=== PATIENT | male | born 1980 | race Caucasian/White ===

== ENCOUNTER 2023-12-07 17:27 | Emergency (ER) | payer OTHER ==
[~2023-12-07] VITALS: Ht 180.3 cm; Wt 95.5 kg
[2023-12-07] MEDS ORDERED: predniSONE 50 MG,predniSONE 10 MG PO ONE (18:15)
[2023-12-07] MEDS ORDERED: Albuterol/Ipratropium 3 MG-0.5 MG/3 ML Neb Soln IH ONE (18:15)
[2023-12-07] MEDS ORDERED: PREDNISONE20 MG PO (19:01)
[2023-12-07 19:06] VITALS: BP 159/96; PULSE 58; TEMP 97.1
== END 2023-12-07 19:06 | disposition home or self-care (01) ==
LOC: COL.ER 17:27
DX: J10.1 Influenza due to other identified influenza virus with other respiratory manifestations (principal); F17.210 Nicotine dependence, cigarettes, uncomplicated
CPT/HCPCS: J7512